=== PATIENT | male | born 1960 | race African-American/Black ===

== ENCOUNTER 2020-12-19 13:05 | Inpatient (IN) | payer MEDICAID, OTHER ==
[~2020-12-19] VITALS: Ht 167.6 cm; Wt 63.6 kg
[2020-12-19] MEDS: POTASSIUM CHL 20MEQ/100ML 100 ML IV SCH ×2 (02:15→22:50)
[2020-12-19] MEDS ORDERED: SODIUM CHLORIDE 0.9% 1,000 ML IV ONE (14:30)
[2020-12-19] MEDS ORDERED: DEXTROSE 50% SYRINGE 50 ML IV ONE (14:34)
[2020-12-19] MEDS ORDERED: DEXTROSE (50%) 50ML SYRG IV ONE (14:45)
[2020-12-19 15:17] LABS: Basophils # (auto) 0 10 ^3/uL (0-0.2); Basophils % (auto) 0.7 % (0.0-2.0); Eosinophils # (auto) 0 10 ^3/uL (0-0.8); Eosinophils % (auto) 0.5 % (0.0-7.0); Hematocrit 29.1 % (41.0-53.0); Hemoglobin 9.7 g/dL (13.5-17.5); Lymphocytes # (auto) 1.7 10 ^3/uL (0.4-5.4); Lymphocytes % (auto) 34.6 % (10.0-50.0); Mean Corpuscular Hemoglobin 30.7 pg (28.0-32.0); Mean Corpuscular Hgb Conc. 33.3 g/dL (32.0-36.0); Mean Corpuscular Volume 92.3 fL (80.0-100.0); Monocytes # (auto) 0.4 10 ^3/uL (0-1.3); Monocytes % (auto) 8.2 % (0.0-12.0); Neutrophils # (auto) 2.8 10 ^3/uL (1.6-8.6); Nucleated Red Blood Cells % 0.4 %; Platelet Count (auto) 470 10^3/uL (140-450); Red Blood Cells 3.15 10^6/uL (4.5-5.90); Red Cell Distribution Width 14.8 % (11.8-14.3)
[2020-12-19 15:31] LABS: INR 1.02 (0.9-1.15); Partial Thromboplastin Time 24.7 sec (23.0-31.2)
[2020-12-19] MEDS ORDERED: SODIUM CHLORIDE 0.9% 1,000 ML IVB ONE (15:45)
[2020-12-19 15:49] LABS: Albumin 2.4 g/dL (3.4-5.0); Anion Gap 8 (5-15); Blood Urea Nitrogen 22 mg/dL (7-18); Calcium 8.8 mg/dL (8.5-10.1); Carbon Dioxide 26 mmol/L (21-32); Chloride 107 mmol/L (98-107); Glucose 76 mg/dL (74-106); Potassium 3.3 mmol/L (3.5-5.1); Sodium 141 mmol/L (136-145)
[2020-12-19 15:55] LABS: Alanine Aminotransferase 17 U/L (16-61); Alkaline Phosphatase 91 U/L (45-117); Aspartate Aminotransferase 11 U/L (15-37); BUN/Creatinine Ratio 22.2; Bilirubin, Total 0.2 mg/dL (0.2-1.0); GFR African American 99 mL/min; GFR Non-African American 82 mL/min
[2020-12-19 16:12] LABS: Blood Alcohol < 3.0 mg/dL (0-5); Magnesium 2.1 mg/dL (1.6-2.6)
[2020-12-19] MEDS ORDERED: POTASSIUM EFFERVESENT TAB 25 MEQ GT ONE (19:30)
[2020-12-19] MEDS ORDERED: NITROGLYCERIN 0.4 MG SL TAB SL PRN (21:30)
[2020-12-19] MEDS ORDERED: MORPHINE SULF INJ 2 MG/ML SYRINGE 1ML IV PRN (21:30)
[2020-12-19] MEDS ORDERED: DEXTROSE (50%) 50ML SYRG IV PRN (21:30)
[2020-12-19] MEDS: SODIUM CHLORIDE 0.9% 1,000 ML IV SCH (22:30)
[2020-12-19 23:47] LABS: Urine Bacteria NONE SEEN /hpf (None Seen); Urine Blood Negative /uL (Negative); Urine Mucus FEW (None Seen); Urine Specific Gravity 1.018 (1.001-1.035); Urine WBC 56 /hpf (0 - 3); Urine WBC Clumps PRESENT /hpf (None Seen)
[2020-12-19 23:49] LABS: Amphetamine Screen, Urine NEGATIVE (NEGATIVE); Barbiturate Scree,Urine NEGATIVE (NEGATIVE); Benzodiazephine Screen, Urine NEGATIVE (NEGATIVE); Cannabinoid Screen, Urine POSITIVE (NEGATIVE); Cocaine Screen, Urine POSITIVE (NEGATIVE); Opiate Scree,Urine NEGATIVE (NEGATIVE); Phencyclidine Screen, Urine NEGATIVE (NEGATIVE)
[2020-12-20] MEDS ORDERED: DEXTROSE (50%) 50ML SYRG IV PRN ×5 (00:15→07:00)
[2020-12-20] MEDS ORDERED: MIRT-66 PO (03:07)
[2020-12-20] MEDS ORDERED: INSREG3 IV (03:07)
[2020-12-20 05:01] VITALS: BP 128/71
[2020-12-20 05:41] LABS: Basophils # (auto) 0 10 ^3/uL (0-0.2); Basophils % (auto) 0.8 % (0.0-2.0); Eosinophils # (auto) 0.1 10 ^3/uL (0-0.8); Eosinophils % (auto) 1.1 % (0.0-7.0); Hematocrit 29.1 % (41.0-53.0); Hemoglobin 9.8 g/dL (13.5-17.5); Lymphocytes # (auto) 1.9 10 ^3/uL (0.4-5.4); Lymphocytes % (auto) 36.7 % (10.0-50.0); Mean Corpuscular Hemoglobin 31.3 pg (28.0-32.0); Mean Corpuscular Hgb Conc. 33.8 g/dL (32.0-36.0); Mean Corpuscular Volume 92.7 fL (80.0-100.0); Monocytes # (auto) 0.3 10 ^3/uL (0-1.3); Monocytes % (auto) 5.9 % (0.0-12.0); Neutrophils # (auto) 2.9 10 ^3/uL (1.6-8.6); Neutrophils % (auto) 55.5 % (37.0-80.0); Nucleated Red Blood Cells % 0.1 %; Platelet Count (auto) 467 10^3/uL (140-450); Red Blood Cells 3.14 10^6/uL (4.5-5.90); Red Cell Distribution Width 14.9 % (11.8-14.3); White Blood Cell 5.2 10^3/uL (4.4-10.8)
[2020-12-20 06:01] LABS: Calcium 8.4 mg/dL (8.5-10.1); Potassium 5.3 mmol/L (3.5-5.1)
[2020-12-20 06:05] LABS: Albumin 2.2 g/dL (3.4-5.0); BUN/Creatinine Ratio 22.5
[2020-12-20 06:09] LABS: Bilirubin, Total 0.1 mg/dL (0.2-1.0); Total Protein 6.7 g/dL (6.4-8.2)
[2020-12-20] MEDS ORDERED: InsuLIN REG 1unit/0.01ml Soln (100units/ml) SC SCH ×7 (07:00→22:00)
[2020-12-20] MEDS ORDERED: ACCU-CHEK COMFORT CURVE STRIP VI SCH ×4 (07:00)
[2020-12-20] MEDS: SODIUM CHLORIDE 0.9% 1,000 ML IV SCH (07:30)
[2020-12-20 08:00] VITALS: BP 129/87
[2020-12-20 08:37] VITALS: BP 129/87
[2020-12-20] MEDS: ACCU-CHEK COMFORT CURVE STRIP VI SCH ×2 (08:38→11:30)
[2020-12-20] MEDS: InsuLIN REG 1unit/0.01ml Soln (100units/ml) SC SCH ×2 (08:38→11:30)
[2020-12-20] MEDS ORDERED: ENOXAPARIN SOD 40 MG/0.4 ML SYRINGE SC SCH (10:00)
[2020-12-20 13:00] VITALS: BP 139/79
== END 2020-12-20 15:00 | disposition left against medical advice (07) | DRG 52 ==
LOC: EDBD 13:05 → ER 13:05 → TELE 21:49 → TELE-WESTW 23:38
PROVIDERS: ADMIT Hospitalist; ATTEND Hospitalist
DX: G92 Toxic encephalopathy (principal); E11.649 Type 2 diabetes mellitus with hypoglycemia without coma; M48.02 Spinal stenosis, cervical region; D50.8 Other iron deficiency anemias; E78.5 Hyperlipidemia, unspecified; F14.90 Cocaine use, unspecified, uncomplicated; I95.1 Orthostatic hypotension; Z20.822 Contact with and (suspected) exposure to COVID-19; E87.6 Hypokalemia; Z53.29 Procedure and treatment not carried out because of patient's decision for other reasons; I10 Essential (primary) hypertension; F32.9 Major depressive disorder, single episode, unspecified; F41.9 Anxiety disorder, unspecified; I70.0 Atherosclerosis of aorta; Z89.511 Acquired absence of right leg below knee; Z79.899 Other long term (current) drug therapy
CPT/HCPCS: 36415; 70450; 71045; 72125; 80053; 80307; 80320; 81001; 82962; 83036; 83735; 84132; 84484; 85025; 85610; 85730; 87081; 87426; 93306; 96361; 96374; G0378; J1815; J3480

== ENCOUNTER 2021-03-05 08:43 | Emergency (ER) | payer MEDICAID ==
[~2021-03-05] VITALS: Ht 167.6 cm; Wt 63.5 kg
[~2021-03-05 08:43] MED LIST: INSREG3 IV; MIRT-66 PO
[2021-03-05 09:08] VITALS: BP 107/82
== END 2021-03-05 09:17 | disposition home or self-care (01) ==
LOC: ER 08:43
DX: Z48.01 Encounter for change or removal of surgical wound dressing (principal); I10 Essential (primary) hypertension; E11.9 Type 2 diabetes mellitus without complications; E78.5 Hyperlipidemia, unspecified; Z89.511 Acquired absence of right leg below knee; Z79.4 Long term (current) use of insulin; Z79.899 Other long term (current) drug therapy